=== PATIENT | female | born 1985 | race Caucasian/White ===

== ENCOUNTER → 2017-05-30 20:33 | Emergency (ER) | payer MEDICAID ==
[~2017-05-30 20:33] MED LIST: KETOROLAC 30 MG INJ ONE
== END | disposition left against medical advice (07) ==
LOC: FTE 20:33 → E/R 20:33
DX: Z53.21 Procedure and treatment not carried out due to patient leaving prior to being seen by health care provider (principal)
CPT/HCPCS: J1885